=== PATIENT | female | born 1970 | race American Indian/Alaskan Native ===

== ENCOUNTER 2019-05-09 13:46 | Observation (INO) | payer BC ==
--- NOTE | 2019-05-09 14:15 | Emergency Department Report ---
Blank Doc - Documentation Documentation: 48-year-old female that presents with right eyelid drop and right facial numbn ess. Denies any facial drooping, weakness, numbness, or decreased ROM. Denies any eye pain or visual changes. Symptoms noticed at 515 AM this morning. Exam: No facial drooping. No one sided weakness. Normal gait. EMOI. A/O x3. Slight eyelid dropping. Otherwise normal neuro exam. This initial assessment/diagnostic orders/clinical plan/treatment(s) is/are subject to change based on patient's health status, clinical progression and re- assessment by fellow clinical providers in the ED. Further treatment and workup at subsequent clinical providers discretion. Patient/guardians urged not to elope from the ED as their condition may be serious if not clinically assessed and managed. Initial orders include: 1- Patient sent to MAIN ED for further evaluation and treatment 2- labs 3- CT scan
[2019-05-09 15:41] LABS: Basophils % (Auto) 0.6 % (0.0-1.8); Eosinophils % (Auto) 0.7 % (0.0-4.3); Hematocrit 38.9 % (30.3-42.9); Hemoglobin 12.8 gm/dl (10.1-14.3); Lymphocytes % (Auto) 35.6 % (13.4-35.0); Mean Corpuscular HGB Conc 33 % (30-34); Mean Corpuscular Volume 90 fl (79-97); Monocytes # (Auto) 0.4 K/mm3 (0.0-0.8); Monocytes % (Auto) 6.7 % (0.0-7.3); Platelet Count 203 K/mm3 (140-440); Red Blood Count 4.31 M/mm3 (3.65-5.03); Red Cell Distribution Width 14.2 % (13.2-15.2)
[2019-05-09 15:50] LABS: INR 0.92 (0.87-1.13)
[2019-05-09 15:51] LABS: Partial Thromboplastin Time 26.8 Sec. (24.2-36.6)
[2019-05-09 16:03] LABS: Alanine Aminotransferase 15 units/L (7-56); Albumin 4.5 g/dL (3.9-5); BUN/Creatinine Ratio 28; Blood Urea Nitrogen 17 mg/dL (7-17); Calcium 9.7 mg/dL (8.4-10.2); Hemolysis Index 11
--- NOTE | 2019-05-09 17:03 | Cat Scan Report ---
CT head/brain wo con INDICATION / CLINICAL INFORMATION: 48 years Female; Stroke symptoms. TECHNIQUE: Routine CT head without contrast. All CT scans at this location are performed using CT dos e reduction for ALARA by means of automated exposure control. COMPARISON: None. FINDINGS: BRAIN / INTRACRANIAL CONTENTS: The brain appears to demonstrate appropriate attenuation. The ventricu lar system is within normal limits in size and configuration. There is no clear CT evidence of acute intracranial hemorrhage or significant mass effect. ORBITS: No significant abnormality of visualized orbits. SINUSES / MASTOIDS: No significant abnormality the visualized paranasal sinuses or mastoid air cells. CRANIOCERVICAL JUNCTION: No significant abnormality. ADDITIONAL FINDINGS: None. IMPRESSION: 1. There is no CT evidence of acute intracranial process. Signer Name: Ruy Whittaker MD Signed: 05/09/2019 4:59 PM Workstation Name: [id number]
--- NOTE | 2019-05-09 19:09 | Emergency Department Report ---
HPI - General Chief Complaint: Neuro Symptoms/Deficit Time Seen by Provider: 05/09/19 14:12 - HPI HPI: 48-year-old -Citizen Of [place] female presents to the emergency department with a complaint of a heaviness to the right eyelid and some decrease sensation or numbness to the right side of the face and the shoulder that started upon waking up this morning around 5:15 AM. She denies any slurred speech, headache, facial droop, weakness. She did not take anything for symptoms prior to presentation. The patient went to work today and then drove herself in to be seen. She has a past medical history of fibromyalgia. No recent travel or sick contacts at home. ED Past Medical Hx - Past Medical History Previous Medical History?: Yes Additional medical history: fibromyalgia - Surgical History Past Surgical History?: No - Social History Smoking Status: Never Smoker Substance Use Type: None ED Review of Systems ROS: Stated complaint: RT SIDE EYE WEAK/RT SIDE NUMB Other details as noted in HPI Comment: All other systems reviewed and negative Constitutional: denies: chills, fever Eyes: other (right eyelid heaviness). denies: eye pain, vision change ENT: denies: ear pain, throat pain Respiratory: denies: cough, shortness of breath Cardiovascular: denies: chest pain, palpitations Gastrointestinal: denies: abdominal pain, vomiting Genitourinary: denies: dysuria, discharge Musculoskeletal: denies: back pain, arthralgia Skin: denies: rash, lesions Neurological: numbness (right side of face and upper arm). denies: headache Physical Exam - Physical Exam Vital Signs: Vital Signs 05/09/19 13:52 Temperature 98.8 F Pulse Rate 77 Respiratory 18 Rate Blood Pressure 159/81 O2 Sat by Pulse 100 Oximetry Physical Exam: GENERAL: The patient is well-developed well-nourished. HENT: Normocephalic. Atraumatic. Patient has moist mucous membranes. EYES: Extraocular motions are intact. Pupils equal reactive to light bilat erally. No nystagmus. There is a very slight right-sided ptosis when compared to the left. NECK: Supple. Trachea is midline. CHEST/LUNGS: Clear to auscultation. There is no respiratory distress noted. HEART/CARDIOVASCULAR: Regular. There is no tachycardia. There is no murmur. ABDOMEN: Abdomen is soft, nontender. Patient has normal bowel sounds. There is no abdominal distention. SKIN: Skin is warm and dry. NEURO: The patient is awake, alert, and oriented. The patient is cooperative. Normal speech. No facial asymmetry. No pronator drift or dysmetria. There is some mild decreased sensation to the right side of the face when compared to the left. MUSCULOSKELETAL: There is no tenderness or deformity. There is no limitation range of motion. There is no evidence of acute injury. Muscle strength 5 out of 5 for upper and lower extremities bilaterally. ED Course Vital Signs 05/09/19 13:52 Temperature 98.8 F Pulse Rate 77 Respiratory 18 Rate Blood Pressure 159/81 O2 Sat by Pulse 100 Oximetry - Consultations Consultation #1: 05/09/19 19:20 I spoke with the telemedicine neurologist, Dr. Genesis Watson, who recommends that the patient be admitted as an observational stay for an MRI of the brain and further TIA/CVA work-up secondary to the patient's complaints and presenting symptoms. ED Medical Decision Making - Lab Data Result diagrams: 05/09/19 15:26 05/09/19 15:26 - EKG Data -: EKG Interpreted by Ct EKG shows normal: sinus rhythm, axis, intervals, QRS complexes, ST-T waves Rate: normal - EKG Data When compared to previous EKG there are: previous EKG unavailable Interpretation: normal EKG - Radiology Data Radiology results: report reviewed CT head/brain wo con INDICATION / CLINICAL INFORMATION: 48 years Female; Stroke symptoms. TECHNIQUE: Routine CT head without contrast. All CT scans at this location are performed using CT dose reduction for ALARA by means of automated exposure control. COMPARISON: None. FINDINGS: BRAIN / INTRACRANIAL CONTENTS: The brain appears to demonstrate appropriate attenuation. The ventricular system is within normal limits in size and configuration. There is no clear CT evidence of acute intracranial hemorrhage or significant mass effect. ORBITS: No significant abnormality of visualized orbits. SINUSES / MASTOIDS: No significant abnormality the visualized paranasal sinuses or mastoid air cells. CRANIOCERVICAL JUNCTION: No significant abnormality. ADDITIONAL FINDINGS: None. IMPRESSION: 1. There is no CT evidence of acute intracranial process. - Medical Decision Making This patient presents to the emergency department with the complaint of a heavy sensation to the right eye lid and some numbness to the right side of the face and right upper arm. At the time of my examination the right arm numbness has resolved and the patient just complains of the right eye heaviness and subjective decrease sensation to the right side of the face. She has a NIH stroke scale of 1. A CT scan of the head without contrast does not show any acute bleed, shift, mass, ischemia, or any other acute process. Patient's labs have been unremarkable. Since the patient woke up with the symptoms and is outside of the 4.5-hour window, the patient is not a TPA candidate. It does not appear consistent with a large vessel occlusion. I did speak with the telemedicine neurologist who agrees with this assessment but recommends the patient being admitted for MRI and further TIA/CVA work-up. Vital signs have been stable throughout the ED course. I have discussed the lab and imaging results with the patient, as well as the plan for admission, and she understands and agrees to the plan. The patient has been accepted for admission by the hospitalist, Dr. Martinez. - Differential Diagnosis TIA, CVA, Fibromyalgia, Dysrythmia, Hypoglycemia Critical Care Time: No Critical care attestation.: If time is entered above; I have spent that time in minutes in the direct care of this critically ill patient, excluding procedure time. ED Disposition Clinical Impression: TIA (transient ischemic attack) Hypertension Qualifiers: Hypertension type: essential hypertension Qualified Code(s): I10 - Essential (primary) hypertension Disposition: OP ADMIT IP TO THIS HOSP Is pt being admited?: Yes Condition: Fair Instructions: Hypertension (ED) Referrals: PRIMARY CARE, [Primary Care Provider] - 3-5 Days Time of Disposition: 21:58 - Assessment Assessment Interval: Baseline - Level of Consciousness 1a. Level of Consciousness: alert/keenly responsive - LOC Questions 1b. LOC Questions: answers both correctly - LOC Command 1c. LOC Commands: performs tasks correctly - Best Gaze 2. Best Gaze: normal - Visual 3. Visual: no visual loss - Facial Palsy 4. Facial Palsy: normal symmetrical movement - Motor Arm 5a. Motor Arm Left: no drift 5b. Motor Arm Right: no drift - Motor Leg 6a. Motor Leg Left: no drift 6b. Motor Leg Right: no drift - Limb Ataxia 7. Limb Ataxia: absent - Sensory 8. Sensory: mild/moderate sensory loss - Best Language 9. Best Language: no aphasia - Dysarthria 10. Dysarthria: normal - Extinction and Inattention 11. Extinction/Inattention: no abnormality - Scoring Total Score: 1 Stroke Severity: Minor Stroke
[2019-05-09] MEDS ORDERED: ASPIRIN 81 MG TAB CHEW PO ONE (19:23)
[2019-05-09] MEDS ORDERED: METOCLOPRAMIDE 10 MG TAB PO PRN (22:47)
[2019-05-09] MEDS ORDERED: ACETAMINOPHEN 325 MG TAB PO PRN ×2 (22:47)
[2019-05-09] MEDS ORDERED: PROMETHAZINE 25 MG RECT SUPP PR PRN (22:47)
[2019-05-09] MEDS ORDERED: ONDANSETRON 4 MG/2 ML INJ IV PRN ×2 (22:47)
[2019-05-09] MEDS ORDERED: MORPHINE 2 MG/1 ML INJ IV PRN (22:47)
[2019-05-09] MEDS ORDERED: MAGNESIUM HYDROXIDE (MOM) ORAL LIQD UDC PO PRN ×2 (22:47)
--- NOTE | 2019-05-09 23:13 | History and Physical Report ---
History of Present Illness Date of examination: 05/09/19 Date of admission: 05/09/19 21:58 Chief complaint: Right sided facial/upper and lower extremity numbness History of present illness: 48-year-old -[place] female with known history of fibromyalgia prese nting to the emergency room today complaining of right facial and right upper right lower extremity numbness. She was lying down and upon waking up in the morning she started having the symptoms. She denies any headache or dizziness, no nausea vomiting, no chest pain or shortness of breath. She denies any difficulty swallowing ,no difficulty with her speech and no facial asymmetry.. She denies having discount of symptoms in the past. Upon arrival in the emergency room work-up has been unremarkable. She was evaluated by the teleneurologist and recommendation was to have patient worked up for CVA. Past History Past Medical History: other (Fibromyalgia) Past Surgical History: Other (Bilateral tubal ligation) Social history: no significant social history Family history: hypertension, stroke Medications and Allergies Allergies Allergy/AdvReac Type Severity Reaction Status Date / Time No Known Allergies Allergy Verified 05/09/19 13:56 Active Meds: Active Medications Acetaminophen (Tylenol) 650 mg PO Q4H PRN PRN Reason: Pain MILD(1-3)/Fever >100.5/GIORDANO Acetaminophen (Tylenol) 650 mg PO Q4H PRN PRN Reason: Pain, Mild (1-3) Aspirin (Aspirin) 325 mg PO QDAY BRENNEN Bisacodyl (Dulcolax) 10 mg TN QDAY PRN PRN Reason: Constipation Heparin Sodium (Porcine) (Heparin) 5,000 unit SUB-Q Q8HR BRENNEN Magnesium Hydroxide (Milk Of Magnesia) 30 ml PO Q4H PRN PRN Reason: Constipation Magnesium Hydroxide (Milk Of Magnesia) 30 ml PO Q4H PRN PRN Reason: Constipation Metoclopramide HCl (Reglan) 10 mg PO Q6H PRN PRN Reason: Nausea And Vomiting Morphine Sulfate (Morphine) 2 mg IV Q4H PRN PRN Reason: Pain, Moderate (4-6) Ondansetron HCl (Zofran) 4 mg IV Q8H PRN PRN Reason: Nausea And Vomiting Ondansetron HCl (Zofran) 4 mg IV Q8H PRN PRN Reason: Nausea And Vomiting Promethazine HCl (Phenergan) 25 mg TN Q6H PRN PRN Reason: Nausea And Vomiting Sodium Chloride (Sodium Chloride Flush Syringe 10 Ml) 10 ml IV BID BRENNEN Sodium Chloride (Sodium Chloride Flush Syringe 10 Ml) 10 ml IV PRN PRN PRN Reason: LINE FLUSH Sodium Chloride (Sodium Chloride Flush Syringe 10 Ml) 10 ml INJ PRN PRN PRN Reason: LINE FLUSH Review of Systems Constitutional: no fever, no chills Cardiovascular: no chest pain, no palpitations Respiratory: no cough, no shortness of breath Gastrointestinal: no nausea, no vomiting, no diarrhea Genitourinary Female: no dysuria, no urinary frequency, no hematuria Musculoskeletal: no neck pain, no low back pain Integumentary: no rash, no pruritis Neurological: numbness, no headaches, no change in speech, no change in mentation Exam - Constitutional Vitals: Temp Pulse Resp BP Pulse Ox 98.6 F 76 16 125/55 100 05/09/19 21:57 05/09/19 21:59 05/09/19 21:57 05/09/19 21:57 05/09/19 21:57 General appearance: Present: no acute distress, well-nourished - EENT Eyes: Present: PERRL, EOM intact ENT: hearing intact, clear oral mucosa, dentition normal - Neck Neck: Present: supple, normal ROM - Respiratory Respiratory effort: normal Respiratory: bilateral: CTA - Cardiovascular Rhythm: regular Heart Sounds: Present: S1 & S2 - Extremities Extremities: no ischemia, pulses intact, pulses symmetrical, No edema, Full ROM Peripheral Pulses: within normal limits - Abdominal General gastrointestinal: Present: soft, non-tender, non-distended, normal bowel sounds - Integumentary Integumentary: Present: clear, warm, dry - Musculoskeletal Musculoskeletal: strength equal bilaterally - Psychiatric Psychiatric: appropriate mood/affect, intact judgment & insight, cooperative - Neurologic Neurologic: CNII-XII intact, moves all extremities Results - Labs CBC & Chem 7: 05/09/19 15:26 05/09/19 15:26 Labs: Abnormal lab results 05/09/19 05/09/19 Range/Units 15:26 15:26 Lymph % (Auto) 35.6 H (13.4-35.0) % Carbon Dioxide 21 L (22-30) mmol/L Creatinine 0.6 L (0.7-1.2) mg/dL Assessment and Plan - Patient Problems (1) TIA (transient ischemic attack) Current Visit: Yes Status: Acute Plan to address problem: Patient admitted placed on telemetry. Will monitor neurological status. Patient placed on daily aspirin. We will schedule patient for carotid Doppler and MRI of the brain. We will place a consult to neurology for further evaluation and recommendation. (2) DVT prophylaxis Current Visit: Yes Status: Acute Plan to address problem: Patient placed on subcutaneous heparin. (3) Full code status Current Visit: Yes Status: Acute
--- NOTE | 2019-05-10 02:14 | Cat Scan Report ---
NECK CT ANGIOGRAM 05/10/2019 HISTORY: Right-sided facial weakness FINDINGS: Contrast-enhanced CT angiographic images of the neck were obtained. In addition to the axia l images, sagittal and coronal reformatted images were obtained. In addition, 3 plane MIP reconstruct ions were produced. NASCET like criteria were used in this evaluation. There is no evidence of abnormality. Carotid arteries and carotid bifurcations are unremarkable. Vertebral arteries are normal. Visualized portions of the aortic arch are unremarkable. IMPRESSION: No significant abnormality. All CT scans at this location are performed using dose reduction to ALARA by means of automated expos ure control. Signer Name: Aubrey Pritchett MD Signed: 05/10/2019 2:10 AM Workstation Name: [id number]
--- NOTE | 2019-05-10 02:16 | Cat Scan Report ---
HEAD CT ANGIOGRAM 05/10/2019 HISTORY: Facial weakness FINDINGS: Contrast-enhanced CT angiographic images of the intracranial circulation were obtained. In addition to the axial images, sagittal and coronal reformatted images were obtained. In addition, 3 p ashley MIP reconstructions were produced. There is no evidence of abnormality. Normal vascular contours are present associated with anterior an d posterior circulation at the level of the skull base and [place]. There is no evidence of vessel stenosis or occlusion. IMPRESSION: Negative exam All CT scans at this location are performed using dose reduction to ALARA by means of automated expos ure control. Signer Name: Aubrey Pritchett MD Signed: 05/10/2019 2:11 AM Workstation Name: [id number]
[2019-05-10 05:10] VITALS: BP 103/55
[2019-05-10] MEDS: HEPARIN 5,000 UNIT/1 ML VIAL SUB-Q SCH ×2 (05:43→14:23)
[2019-05-10 06:49] LABS: BUN/Creatinine Ratio 22; Blood Urea Nitrogen 13 mg/dL (7-17); Calcium 8.7 mg/dL (8.4-10.2); Chol/HDL Ratio 2.78 %; HDL Cholesterol 57 mg/dL (40-59); Hemolysis Index 3; LDL Cholesterol,Direct 95 mg/dL (50-130)
[2019-05-10 07:01] LABS: Basophils % (Auto) 0.5 % (0.0-1.8); Eosinophils % (Auto) 0.7 % (0.0-4.3); Hematocrit 36.2 % (30.3-42.9); Hemoglobin 12.1 gm/dl (10.1-14.3); Lymphocytes # (Auto) 2.2 K/mm3 (1.2-5.4); Lymphocytes % (Auto) 41.9 % (13.4-35.0); Mean Corpuscular HGB Conc 33 % (30-34); Mean Corpuscular Volume 89 fl (79-97); Monocytes # (Auto) 0.3 K/mm3 (0.0-0.8); Monocytes % (Auto) 6.8 % (0.0-7.3); Platelet Count 183 K/mm3 (140-440); Red Blood Count 4.05 M/mm3 (3.65-5.03); Red Cell Distribution Width 14.3 % (13.2-15.2)
[2019-05-10 07:13] LABS: INR 1.01 (0.87-1.13)
[2019-05-10 07:14] LABS: Partial Thromboplastin Time 29.7 Sec. (24.2-36.6)
[2019-05-10] MEDS ORDERED: ASPIRIN 325 MG TAB PO SCH (10:00)
--- NOTE | 2019-05-10 10:39 | Consultation ---
History of Present Illness Consult date: 05/10/19 Reason for Consult: Numbness right side of face and right arm, ptosis right eye Chief complaint: Numbness right side of face and right arm, ptosis right eye History of present illness: Patient is a 48-year-old woman with a history of fibromyalgia. Yesterday morning when she woke up around 5 AM, she began to experience numbness and paresthesias of the right face and right arm. She also noticed ptosis of the right eye. When driving to work, she noticed that she has some difficulty with blurriness of vision in the right eye. Patient was then brought to [facility] for further evaluation. Today, numbness of the right arm has improved, however she continues to experience paresthesias of the right side of the face, and mild ptosis of the right eye. She states that she has not ever had symptoms of diplopia, shortness of breath, dysphagia, weakness of any extremity. However, she does endorse that she occasionally has weakness in the muscles of the neck, and sometimes finds it difficult to keep her head up. Past History Past Medical History: other (Fibromyalgia) Past Surgical History: Other (Bilateral tubal ligation) Social history: no significant social history, lives with family Family history: hypertension, stroke Medications and Allergies Allergies Allergy/AdvReac Type Severity Reaction Status Date / Time No Known Allergies Allergy Verified 05/09/19 13:56 Active Meds: Active Medications Acetaminophen (Tylenol) 650 mg PO Q4H PRN PRN Reason: Pain MILD(1-3)/Fever >100.5/GIORDANO Aspirin (Aspirin) 325 mg PO QDAY BRENNEN Bisacodyl (Dulcolax) 10 mg MT QDAY PRN PRN Reason: Constipation Heparin Sodium (Porcine) (Heparin) 5,000 unit SUB-Q Q8HR [facility] Last Admin: 05/10/19 05:43 Dose: 5,000 unit Documented by: Magnesium Hydroxide (Milk Of Magnesia) 30 ml PO Q4H PRN PRN Reason: Constipation Metoclopramide HCl (Reglan) 10 mg PO Q6H PRN PRN Reason: Nausea And Vomiting Morphine Sulfate (Morphine) 2 mg IV Q4H PRN PRN Reason: Pain, Moderate (4-6) Ondansetron HCl (Zofran) 4 mg IV Q8H PRN PRN Reason: Nausea And Vomiting Promethazine HCl (Phenergan) 25 mg MT Q6H PRN PRN Reason: Nausea And Vomiting Sodium Chloride (Sodium Chloride Flush Syringe 10 Ml) 10 ml IV BID BRENNEN Sodium Chloride (Sodium Chloride Flush Syringe 10 Ml) 10 ml IV PRN PRN PRN Reason: LINE FLUSH Review of Systems All systems: negative Neurological: weakness (Of right eyelid muscles causing ptosis), parathesias Physical Examination - Vital Signs Vital Signs: Vital Signs Temp Pulse Resp BP Pulse Ox 98.8 F 77 18 159/81 100 05/09/19 13:52 05/09/19 13:52 05/09/19 13:52 05/09/19 13:52 05/09/19 13:52 - Physical Exam Narrative exam: Patient is alert, awake, oriented x4, follows complex commands. No dysarthria or aphasia noted. Right pupil 3 mm, left pupil 4 mm, bilaterally reactive to light, EOMI, VFF, tongue midline, decreased sensation on the right side of the face to light touch, mild right eye ptosis noted. 5/5 strength in all extremities. Bilaterally intact light touch. Bilaterally intact to FTN and HTS. 2+ reflexes throughout. - Constitutional General appearance: comfortable - EENT EENT: Present: ATNC, mucous membranes moist, hearing intact - Respiratory Respiratory: Present: lungs clear, normal breath sounds - Cardiovascular Cardiovascular: Present: regular rate, normal S1, normal S2 Extremities: Present: no clubbing, cyanosis, no inflammation - Gastrointestinal Gastrointestinal: Present: normoactive bowel sounds, soft, non-tender - Integumentary Integumentary: Present: normal - Musculoskeletal Musculoskeletal: Present: no fluid collection - Psychiatric Psychiatric: Present: mood/affect appropriate Results - Laboratory Findings CBC and BMP: 05/10/19 06:18 05/10/19 06:18 Abnormal Lab Findings: Abnormal Labs 05/09/19 05/09/19 05/10/19 15:26 15:26 06:18 Lymph % (Auto) 35.6 H 41.9 H Carbon Dioxide 21 L Creatinine 0.6 L 05/10/19 06:18 Lymph % (Auto) Carbon Dioxide 17 L Creatinine 0.6 L Assessment and Plan Patient is a 48-year-old woman with a history of fibromyalgia, who presents with paresthesia of the right face, right arm, right eye ptosis, and mild right myosis. According the patient's clinical findings, it is possible that she may have Elisa syndrome, given that she has ptosis of the right eye, and mild myosis. Alternatively, the patient may have pathology of the neuromuscular junc tion, such as myasthenia gravis. Plan:: 1. Right facial paresthesias/Right eye ptosis and miosis: -CT head: No acute abnormality. MRI brain: No acute abnormality on my review of the imaging, however final report pending. CTA head and neck: No acute abnormality. MRI brain with contrast pending. We will check chest x-ray to rule out any mediastinal or lung apex mass which could cause potential Elisa syndrome. If MRI and chest x-ray are normal, would recommend checking for myasthenia gravis antibody panel, and for patient to have EMG/NCS as outpatient with neurology. -Will sign off, as I am not covering neurology service over the weekend. Please consult neurologist covering the service over the weekend for further neurologic monitoring and management. Thank you for allowing me to take part in the care of this patient. Guru Heredia MD Neurology
--- NOTE | 2019-05-10 11:57 | XRay Report ---
CHEST 2 VIEWS INDICATION: rule out lung mass, given possible warner syndrome. COMPARISON: None FINDINGS: Support devices: None. Heart: Within normal limits. Lungs/pleura: No acute air space or interstitial disease. No pneumothorax. Additional findings: None. IMPRESSION: Normal chest x-ray Signer Name: Kishore Baker Jr, MD Signed: 05/10/2019 11:53 AM Workstation Name: [id number]
--- NOTE | 2019-05-10 12:06 | Vascular Lab Report ---
"DUPLEX DOPPLER ULTRASOUND CAROTID, BILATERAL INDICATION: stroke. COMPARISON: None available. FINDINGS: RIGHT CAROTID: No significant atherosclerotic plaque. CCA velocity: 124 cm/sec. ICA peak systolic velocity: 118 cm/sec. ICA/CCA PSV Ratio: 1.0. Right Vertebral Artery: Antegrade flow. LEFT CAROTID: No significant atherosclerotic plaque. CCA velocity: 145 cm/sec. ICA peak systolic velocity: 131 cm/sec. ICA/CCA PSV Ratio: Less than 1.. Left Vertebral Artery: Antegrade flow. IMPRESSION: 1. Right Internal Carotid Artery: Less than 50% diameter stenosis. 2. Left Internal Carotid Artery: Less than 50% diameter stenosis. Velocity criteria are extrapolated from diameter data as defined by the Society of Radiologists in Ul trasound Consensus Conference, Radiology 2003; 229;340-346. Degree of || ICA PSV || Plaque || ICA/CCA Stenosis (%) || (cm/sec) || estimate (%) || PSV Ratio - Normal...............<125..............None.................<2.0 - <50....................<125..............<50....................<2.0 - 50-69................125-230.........>50....................2.0-4.0 - >70 but <100....>230..............>50....................>4.0 - Near...................High, low, .....visible................variable occlusion or none - Total...................None.............visible;................N/A occlusion no lumen Signer Name: Stephen Martin MD Signed: 05/10/2019 12:01 PM Workstation Name: [id number]"
--- NOTE | 2019-05-10 12:26 | Magnetic Resonance Report ---
MRI BRAIN 05/10/2019 INDICATION / CLINICAL INFORMATION: stroke. Right facial droop TECHNIQUE: Multiplanar, multisequence MR images of the brain were obtained. COMPARISON: None available. FINDINGS: BRAIN / INTRACRANIAL CONTENTS: Unenhanced and enhanced MR images of the brain were obtained. Adriana grap h there is no evidence of acute abnormality. Ventricles and sulci are normal in size and shape. The right lateral ventricle is slightly larger dann n the left, which are considered normal anatomic variation. There is no evidence of acute or chronic ischemic injury, demyelination, hemorrhage, or mass. There a re no abnormal extra-axial fluid collections. Postcontrast images demonstrate no abnormal contrast enhancement. EXTRACRANIAL: Unremarkable CRANIOCERVICAL JUNCTION: No significant abnormality. VASCULAR FLOW-VOIDS: No significant abnormality. IMPRESSION: Negative unenhanced and enhanced MRI of the brain. Signer Name: Aubrey Pritchett MD Signed: 05/10/2019 12:22 PM Workstation Name: [id number]
--- NOTE | 2019-05-10 12:27 | Magnetic Resonance Report ---
The report for the postcontrast images are not included with the separate brain MRI from earlier toda y. There is no abnormal contrast enhancement. Signer Name: Aubrey Pritchett MD Signed: 05/10/2019 12:22 PM Workstation Name: [id number]
--- NOTE | 2019-05-10 13:47 | Discharge Summary ---
Providers - Providers Date of Admission: 05/09/19 21:58 Attending physician: AMAN ADAMS MD 05/09/19 Consult to Physician [CONS] Routine Comment: Consulting Provider: DENNY SCHRADER Physician Instructions: Reason For Exam: Right upper/lower ext./facial numbness 05/09/19 22:51 Consult to Dietitian/Nutrition [CONS] Routine Physician Instructions: Reason For Exam: Reason for Consult: Nutrition Recommendations Reason for Consult: Diet education Occupational Therapy Evaluate and Treat [CONS] Routine Comment: Reason For Exam: Neuro deficits Physical Therapy Evaluation and Treat [CONS] Routine Comment: Reason For Exam: Neuro deficits Primary care physician: BOARD CERTIFIED MUSIC THERAPIST Hospitalization Reason for admission: TIA Condition: Stable Hospital course: 48-year-old -[place] female with known history of fibromyalgia presenting to the emergency room today complaining of right facial and right upper right lower extremity numbness. She was lying down and upon waking up in the morning she started having the symptoms. She denies any headache or dizziness, no nausea vomiting, no chest pain or shortness of breath. She denies any difficulty swallowing ,no difficulty with her speech and no facial asymmetry.. She denies having discount of symptoms in the past. Upon arrival in the emergency room work-up has been unremarkable. She was evaluated by the teleneurologist and recommendation was to have patient worked up for CVA which was negative. She also noticed ptosis of the right eye. When driving to work, she noticed that she has some difficulty with blurriness of vision in the right eye. Patient was then brought to [facility] for further evaluation. Today, numbness of the right arm has improved, however she continues to experience paresthesias of the right side of the face, and mild ptosis of the right eye. She states that she has not ever had symptoms of diplopia, shortness of breath, dysphagia, weakness of any extremity. However, she does endorse that she occasionally has weakness in the muscles of the neck, and sometimes finds it difficult to keep her head up. * She was seen by Neurology and following discussion and evaluation, there was concern for Mysberniceia sav[place] which was discussed witht he patients but she will need follow up with Neruology for further evalution also with Ophthalmology she verbalized understanding. * MRI brain unremarkable, no acute abnormalities. * CXR: no acute abnormality (1) TIA (transient ischemic attack) 2) Acute Metabolic Acidosis 3) Fibromyalgia Disposition: DC-01 TO HOME OR SELFCARE Time spent for discharge: 35 mins Core Measure Documentation - Palliative Care Palliative Care/ Comfort Measures: Not Applicable - Core Measures Any of the following diagnoses?: none Exam - Physical Exam Narrative exam: VITAL SIGNS: Reviewed. GENERAL: The patient appears normally developed, Vital signs as documented. HEAD: No signs of head trauma. EYES: Pupils are equal. Extraocular motions intact. EARS: Hearing grossly intact. MOUTH: Oropharynx is normal. NECK: No adenopathy, no JVD. CHEST: Chest with clear breath sounds bilaterally. No wheezes, rales, or rhonchi. CARDIAC: Regular rate and rhythm. S1 and S2, without murmurs, gallops, or rubs. VASCULAR: No Edema. Peripheral pulses normal and equal in all extremities. ABDOMEN: Soft, non tender and non distended. No rebound or guarding, and no masses palpated. Bowel Sounds normal. MUSCULOSKELETAL: Good range of motion of all major joints. Extremities without clubbing, cyanosis or edema. NEUROLOGIC EXAM: No dysarthria or aphasia noted. Right pupil 3 mm, left pupil 4 mm, bilaterally reactive to light, EOMI, VFF, tongue midline, decreased sensation on the right side of the face to light touch, mild right eye ptosis noted. 5/5 strength in all extremities. Bilaterally intact light touch. Bilaterally intact to FTN and HTS. 2+ reflexes throughout. . Speech normal. Follows commands. PSYCHIATRIC: Mood normal. SKIN: detial exam as documented in skin assessment - Constitutional Vitals: Temp Pulse Resp BP Pulse Ox 98.8 F 69 16 103/55 99 05/10/19 03:27 05/10/19 07:28 05/10/19 03:27 05/10/19 03:27 05/10/19 03:27 Plan Activity: advance as tolerated, fall precautions Diet: low fat Special Instructions: record daily weights, record daily BP diary, record blood sugar diary Follow up with: PRIMARY MD KAT [Primary Care Provider] - 3-5 Days PATRICIA MAHAJAN MD [Staff Physician] - 7 Days Forms: Work/School Release Form Prescriptions: Aspirin [Adult Aspirin] 81 mg PO DAILY #30 tablet. AtorvaSTATin [Lipitor] 40 mg PO DAILY #30 tablet
== END 2019-05-10 17:50 | disposition home or self-care (01) ==
LOC: ED 13:46 → 4A 21:58
PROVIDERS: ADMIT Internal Medicine Geriatric Medicine; ATTEND Internal Medicine
DX: G45.9 Transient cerebral ischemic attack, unspecified (principal); I10 Essential (primary) hypertension; Z98.51 Tubal ligation status
CPT/HCPCS: 36415; 70450; 70496; 70498; 70551; 70552; 71046; 80048; 80053; 80061; 82962; 84443; 84703; 85025; 85610; 85730; 93005; 93010; 93306; 93880; 96372; 97162; 97165; 99285; A9270; A9577; G0378; J1644; Q9967